=== PATIENT | female | born 1940 | race Caucasian/White ===

== ENCOUNTER 2016-11-27 23:33 | Observation (INO) | payer MEDICARE, OTHER ==
[~2016-11-27] VITALS: Ht 160 cm; Wt 54.9 kg
[2016-11-28 00:02] LABS: HEMATOCRIT 36.7 % (36.0-48.0); HEMOGLOBIN 12.6 g/dL (12-16); LYMPHOCYTES 25.7 % (15-50); MCH 31.3 pg (26.0-34.0); MCHC 34.3 g/dL (31.0-37.0); MCV 91.1 fL (80.0-100.0); MEAN PLATELET VOLUME 10.9 fL (7.4-10.4); NEUTROPHILS 65.9 % (40-80); PLATELET COUNT 193 10x3/uL (130-400); RBC 4.03 10x6/uL (4.00-5.40); RDW 12.8 % (11.5-14.5); WBC 7.2 10x3/uL (4.8-10.8)
[2016-11-28 00:17] LABS: ALBUMIN 3.7 g/dL (3.4-5.0); ANION GAP 13.6 mmol/L (8-16); BILIRUBIN - TOTAL 0.3 mg/dL (0.2-1.3); CALCIUM 9.1 mg/dL (8.5-10.1); CARBON DIOXIDE 28.8 mmol/L (21.0-32.0); CREATININE - SERUM 1.2 mg/dL (0.6-1.3); POTASSIUM - SERUM 3.4 mmol/L (3.5-5.1); PROTEIN - SERUM 7.2 g/dL (6.4-8.2)
[2016-11-28 00:23] LABS: APPEARANCE SLT CLOUDY (CLEAR); BILIRUBIN NEGATIVE (NEGATIVE); COLOR YELLOW (YELLOW); GLUCOSE NEGATIVE (NEGATIVE); KETONE NEGATIVE (NEGATIVE); LEUKOCYTE ESTERASE 2+ (NEGATIVE); NITRITE NEGATIVE (NEGATIVE); PROTEIN 1+ mg/dL (NEGATIVE); SPECIFIC GRAVITY 1.015 (1.005-1.020); UROBILINOGEN NORMAL (NORMAL)
[2016-11-28 00:25] LABS: BACTERIA FEW /hpf (NONE SEEN); EPITHELIAL CELLS 0-5 /hpf (0-5); MUCUS <1+ /lpf (NONE SEEN)
[2016-11-28 02:00] VITALS: BP 143/55; BMI 21.4
--- NOTE | 2016-11-28 02:10 | NUR ---
RECIEVED FROM ER VIA ROBB. AWAKE,ALERT. NO DISTRESS NOTED. ADMITTED WIHT UTI. UP TO BR. VOIDED WIHTOUT DIFFICULTY. NO COMPLAINTS VOICED. ORIENTED TO ROOM. CL IN REACH. JIMENA MARCIALT ON FOR SAF[place]Way[place].
--- NOTE | 2016-11-28 02:20 | NUR ---
RESTING QUIETLY. NO DISTRESS NOTED. CL IN REACH
[2016-11-28 04:00] VITALS: BP 122/59
--- NOTE | 2016-11-28 04:44 | NUR ---
AWAKE WITH NO COMPLIANTS VOICED. JIMENA KUNZ ON. CL IN REACH.
--- NOTE | 2016-11-28 08:05 | NUR ---
PT AOX4 RESP EVEN AND NONLABORED PT DENIES NEEDS AT THIS TIME IV TO LEFT FOREARM PATENT AND INTACT AT THIS TIME SRX2 BED AT LOWEST SETTING CALL LIGHT WITHIN REACH WILL CONTINUE TO MONITOR
[2016-11-28 08:31] VITALS: BP 121/54
[2016-11-28 10:20] LABS: BASOPHILS 0 % (0-2); EOSINOPHILS 1.6 % (0-7); HEMATOCRIT 37.6 % (36.0-48.0); HEMOGLOBIN 12.5 g/dL (12-16); IMMATURE GRANULOCYTES 0.2 % (0-5); LYMPHOCYTES 25.4 % (15-50); MCH 31.1 pg (26.0-34.0); MCHC 33.2 g/dL (31.0-37.0); MEAN PLATELET VOLUME 10.9 fL (7.4-10.4); MONOCYTES 9.1 % (2-11); NEUTROPHILS 63.7 % (40-80); PLATELET COUNT 200 10x3/uL (130-400); RBC 4.02 10x6/uL (4.00-5.40); RDW 12.8 % (11.5-14.5); WBC 5.7 10x3/uL (4.8-10.8)
[2016-11-28 10:50] LABS: MCV 93.5 fL (80.0-100.0)
[2016-11-28 11:05] VITALS: Ht 160 cm; Wt 54.9 kg
[2016-11-28 12:00] VITALS: BP 124/62
[2016-11-28] MEDS ORDERED: NAMENDA5 MG PO (12:24)
[2016-11-28] MEDS ORDERED: NORVASC5 MG PO (12:29)
[2016-11-28] MEDS ORDERED: OMEGA-3100 MG PO (12:32)
[2016-11-28] MEDS ORDERED: FLUTICASONE PRO16 GM NASAL (12:32)
[2016-11-28] MEDS ORDERED: OMEPRAZOLE20 M1 PO (12:33)
[2016-11-28 15:47] VITALS: BP 122/64
[2016-11-28 19:50] VITALS: BP 113/59
--- NOTE | 2016-11-28 20:14 | NUR ---
AWAKE,ALERT. NO COMPLAINTS OF PAIN. IV INFUSING TO LEFT AC WIHTOUT REDNESS OR EDEMA NOTED. JIMENA JOAQUINA INTACT FOR SAFTEY. CL IN REACH
[2016-11-29 00:05] VITALS: BP 97/52
--- NOTE | 2016-11-29 02:30 | NUR ---
RESTING QUIETLY. NO DISTRESS NOTED. CL IN REACH. JIMENA JOAQUINA ON.
[2016-11-29 04:00] VITALS: BP 128/55
--- NOTE | 2016-11-29 04:50 | NUR ---
RN NOTE: PT LYING IN SUPINE POSITION WITH EYES CLOSED AND UNLABORED BREATHING. IV IN LEFT AC PATENT WITH NS INFUSING AT 75 ML / HR. WILL CONTINUE TO MONITOR FOR NEEDS.
[2016-11-29 05:41] LABS: BASOPHILS 0 % (0-2); EOSINOPHILS 4.2 % (0-7); HEMATOCRIT 37.1 % (36.0-48.0); HEMOGLOBIN 12.5 g/dL (12-16); IMMATURE GRANULOCYTES 0.2 % (0-5); LYMPHOCYTES 41.1 % (15-50); MCH 31.2 pg (26.0-34.0); MCHC 33.7 g/dL (31.0-37.0); MCV 92.5 fL (80.0-100.0); MONOCYTES 12.8 % (2-11); NEUTROPHILS 41.7 % (40-80); PLATELET COUNT 199 10x3/uL (130-400); RBC 4.01 10x6/uL (4.00-5.40); RDW 12.8 % (11.5-14.5); WBC 4.3 10x3/uL (4.8-10.8)
[2016-11-29 06:02] LABS: ALBUMIN 3.2 g/dL (3.4-5.0); ALKALINE PHOSPHATASE 49 U/L (46-116); ALT (SGPT) 18 U/L (10-68); BILIRUBIN - TOTAL 0.44 mg/dL (0.2-1.3); CALCIUM 8.3 mg/dL (8.5-10.1); CARBON DIOXIDE 27.6 mmol/L (21.0-32.0); CHLORIDE - SERUM 108 mmol/L (98-107); GLUCOSE 87 mg/dL (74-106); POTASSIUM - SERUM 3.5 mmol/L (3.5-5.1); PROTEIN - SERUM 6.5 g/dL (6.4-8.2); SODIUM 143 mmol/L (136-145); eGFR NON AFRICAN AMERICAN 86 mL/min (90-120)
[2016-11-29 06:03] LABS: CALC OSMOLALITY 281 mosm/kg (275-300); CREATININE - SERUM 0.7 mg/dL (0.6-1.3); UREA NITROGEN 8 mg/dL (7-18)
--- NOTE | 2016-11-29 07:50 | NUR ---
PT AOX2 RESP EVEN AND NONLABORED IV TO LEFT AC PATENT AND INTACT AT THIS TIME SRX2 BED AT LOWEST SETTING CALL LIGHT WITHIN REACH WILL CONTINUE TO MONITOR FAMILY AT BEDSIDE
[2016-11-29 07:55] VITALS: BP 152/77
--- NOTE | 2016-11-29 08:02 | NUR ---
Patient Name: KYM HOOKER Admission Status: ER Accout number: [id number] Admission Date: 11-28-2016 : 1940 Admission Diagnosis: Attending: CHILANGO Current LOS: 1 Anticipated DC Date: 12-02-2016 Planned Disposition: Home Primary Insurance: [employer] Discharge Planning Comments: CM MET WITH PATIENT AND SPOUSE (MARTÍN) REGARDING D/C NEEDS AND PLANS. PATIENTS SPOUSE ANSWERED QUESTIONS. SPOUSE STATED HE WILL DRIVE PATIENT HOME AT DISCHARGE AND THERE ARE 3 STEPS W/RAILS TO ENTER HOME AND NO STAIRS INSIDE. PATIENT IS INDPENDENT PER SPOUSE AND HAS A WALKER AND SHOWER CHAIR AT HOME IF NEEDED. PATIENTS PCP IS DR. HERNANDEZ AND PHARMACY IS [facility] IN [place]. PATIENTS SPOUSE STATED SHE DOES NOT NEED HOME HEALTH AT DISCHARGE AT THIS TIME. CM WILL CONTINUE TO FOLLOW PATIENT WITH D/C NEEDS AND PLANS. PCP [facility] [phone] MARTÍN (SPOUSE) [phone] Emg Technician: Shantal Arora How many steps to enter\exit or inside your home? 3/RAILS 0 * PCP DR. HERNANDEZ 0 * [facility] [place] 0 * Preadmission Environment Home with Family 0 * ADLs Independent 0 * Equipment Shower Chair Walker 0 * List name and contact numbers for known caregivers / representatives who currently or will assist patient after discharge: Graciela (SPOUSE) [phone] * Community resources currently utilized None 0 * Additional services required to return to the preadmission environment? Yes 0 * Can the patient safely return to the preadmission environment? Yes 0 * Has this patient been hospitalized within the prior 30 days at any hospital? No 0 Grand Total: 0
[2016-11-29] MEDS ORDERED: LEVAQUIN750 MG PO (11:13)
--- NOTE | 2016-11-29 14:04 | NUR ---
UP TO BR PER SELF. IV FOUND TO OUT AT THIS TIME WITH CATHETER INTACT.
--- NOTE | 2016-11-29 15:00 | NUR ---
PT TAKEN VIA WHEELCHAIR TO PRIVATE VEHICLE AT THIS TIME DISCHARGE INSTRUCTIONS GIVEN TO AT THIS TIME
== END 2016-11-29 15:00 | disposition home or self-care (01) ==
LOC: D.ER 23:33 → D.MS 11-28 01:12 → OBSVTIME 11-28 01:12 → D.MS 11-29 15:00
PROVIDERS: Family Medicine; ADMIT Family Medicine
DX: N39.0 Urinary tract infection, site not specified (principal); R10.32 Left lower quadrant pain; R10.12 Left upper quadrant pain; E87.6 Hypokalemia; K21.9 Gastro-esophageal reflux disease without esophagitis; I10 Essential (primary) hypertension; E86.0 Dehydration; F03.90 Unspecified dementia, unspecified severity, without behavioral disturbance, psychotic disturbance, mood disturbance, and anxiety